=== PATIENT | female | born 1980 | race Caucasian/White ===

== ENCOUNTER 2017-12-10 06:55 | Inpatient (IN) | payer OTHER ==
[2017-12-10] MEDS ORDERED: CITRIC ACID/SODIUM CITRATE 30 ML UNIT-DOSE CUP PO ONE (07:10)
[2017-12-10] MEDS: ELECTROLYTE-148 SOLN 1,000 ML IV SCH ×2 (07:15→08:00)
[2017-12-10 07:49] VITALS: BMI 32.5
[2017-12-10] MEDS ORDERED: OXYTOCIN 20 UNITS in 0.9% NS 40 UNIT/2,000 ML INFUS.BAG IV ONE (08:00)
[2017-12-10] MEDS ORDERED: PHENYLEPHRINE HCL 10 MG/1 ML SINGLE DOSE VIAL ONE (08:03)
[2017-12-10] MEDS ORDERED: morphine SULFATE/Preservative Free 0.5 MG/ML (1cc Syringe) ONE (08:03)
[2017-12-10] MEDS ORDERED: ceFAZolin SODIUM 1 GM VIAL ONE ×3 (08:03→23:00)
--- NOTE | 2017-12-10 08:17 | HP ---
Past Medical History - Primary Care Physician PCP:: Johny Burgos - Admission Chief Complaint: 39 weeks, previous c/s ,request of repeat c/s and BTL. GDM diet controlled, AMA , breech History of Present Illness: 37 yo f g 5 [id number] edc by sono 12/16/17 . with previous c/s requesting repeat c/s , cx clp, fhr cat 1 , irregular contraction , hx of GDM, diet controlled , requesting BTL, aware BTL is permenant and has small failure risks and risks of ectopic, not reversible History Source: Patient Limitations to Obtaining History: No Limitations - Past Medical History ...: 5 ...Para: 4 ...Term: 4 ...: 0 ...Spon : 0 ...Induced : 0 ...Multiple Gestation: 0 ...LMP: 03/11/17 ... Weeks Gestation by Dates: 39.1 ...EDC by Dates: 12/16/17 ...EDC by Sono: 12/16/17 Additional OB History: has baby with Downs. one previous c/s - Past Surgical History Past Surgical History: Yes: Cholecystectomy, Cystectomy (bilateral ovarian cystectomy) Hx Myomectomy: No Hx Transabdominal Cerclage: No - Smoking History Smoking history: Never smoked Have you smoked in the past 12 months: No - Alcohol/Substance Use Hx Alcohol Use: No - Social History Usual Living Arrangement: Yes: With Spouse History of Recent Travel: No Home Medications - Allergies Allergies/Adverse Reactions: Allergies Allergy/AdvReac Type Severity Reaction Status Date / Time car scan dye Allergy Severe Itching Uncoded 12/10/17 07:22 - Home Medications Home Medications: Ambulatory Orders Acetaminophen [Tylenol .Regular Strength -] 650 mg PO Q4H PRN #0 tablet Ibuprofen 600 mg PO QID PRN #20 tablet 09/16/15 Review of Systems - Review of Systems Constitutional: reports: No Symptoms Eyes: reports: No Symptoms HENT: reports: No Symptoms Neck: reports: No Symptoms Cardiovascular: reports: No Symptoms Respiratory: reports: No Symptoms Genitourinary: reports: No Symptoms Breasts: reports: No Symptoms Reported Musculoskeletal: reports: No Symptoms Integumentary: reports: No Symptoms Neurological: reports: No Symptoms Endocrine: reports: No Symptoms Hematology/Lymphatic: reports: No Symptoms Psychiatric: reports: No Symptoms Physical Exam - Maternity Vital Signs: Vital Signs Temperature 98.6 F 12/10/17 07:15 Pulse Rate 80 12/10/17 07:15 Respiratory Rate 18 12/10/17 07:15 Blood Pressure 124/53 L 12/10/17 07:15 O2 Sat by Pulse Oximetry (%) Constitutional: Yes: Obese Eyes: Yes: WNL HENT: Yes: WNL Neck: Yes: WNL Cardiovascular: Yes: WNL Breast(s): Yes: WNL - Abdominal Exam/OB Fundal Height: 40 Number of Fetuses: Single Presentation: Breech Contractions: Yes Regularity: Irregular Intensity: Unaware Monitor Mode: External Heart Rate Location: [facility] Category: I Accelerations: Uniform Decelerations: None - Vaginal Exam/OB Vaginal Bleediing: No Speculum Exam: No Dilatation (cm): closed Effacement (%): 0 Amniotic Membrane Status: Intact Presentation: Miguel Breech Station: -4 - Physical Exam Musculoskeletal: Yes: WNL Extremities: Yes: WNL Edema: LLE: Trace, RLE: Trace Deep Tendon Reflex Grade: Normal +2 ...Motor Strength: WNL Psychiatric: Yes: WNL Hemorrhage Risk Assessment - Risk Factors Medium Risk Factors: Yes: Prior , uterine surgery,or multiple laparotomies Risk Score: 1 Risk Level: Medium Risk Problem List - Problems (1) with 39 completed weeks gestation Code(s): Z3A.39 - 39 WEEKS GESTATION OF (2) Gestational diabetes mellitus (GDM) affecting fourth Code(s): O24.419 - GESTATIONAL DIABETES MELLITUS IN , UNSP CONTROL (3) Previous section complicating Code(s): O34.219 - MATERNAL CARE FOR UNSP TYPE SCAR FROM PREVIOUS DEL (4) Obesity Code(s): E66.9 - OBESITY, UNSPECIFIED Qualifiers: Obesity type: due to excess calories Assessment/Plan repeat c/s , btl, risks discussed
[2017-12-10] MEDS ORDERED: oxyCODONE HCL 5 MG TABLET PO PRN (08:24)
[2017-12-10] MEDS ORDERED: IBUPROFEN 600 MG TABLET (FP) PO PRN (08:24)
[2017-12-10] MEDS ORDERED: BENZOCAINE 28 GM HEMORRHOIDAL OINTMENT PR PRN (08:24)
[2017-12-10] MEDS ORDERED: BENZOCAINE 20% 57 GM BOTTLE TP PRN (08:24)
[2017-12-10] MEDS ORDERED: IBUPROFEN 800 MG/8 ML IJ IVPB PRN (08:24)
[2017-12-10] MEDS ORDERED: METHYLERGONOVINE MALEATE 0.2 MG/1 ML AMP IM PRN (08:24)
[2017-12-10] MEDS ORDERED: diphenhydrAMINE HCL 25 MG CAPSULE (FP) PO PRN (08:24)
[2017-12-10] MEDS ORDERED: WITCH HAZEL 50% (TUCKS) 40 PAD/JAR PAD TP PRN (08:24)
[2017-12-10] MEDS ORDERED: OXYTOCIN 20 UNITS in 0.9% NS 20 UNIT/1,000 ML INFUS.BAG IV SCH (08:30)
[2017-12-10] MEDS ORDERED: OXYTOCIN 10 UNITS/ML VIAL ONE (08:42)
[2017-12-10] MEDS ORDERED: KETOROLAC TROMETHAMINE 30 MG/1 ML VIAL ONE (09:00)
[2017-12-10] MEDS ORDERED: KETAMINE HCL 500 MG/10 ML VIAL ONE (09:22)
[2017-12-10] MEDS ORDERED: LIDOCAINE HCL/PF 2% SDV 5ML VIAL ONE (10:04)
[2017-12-10] MEDS ORDERED: BUPIVACAINE HCL/PF 0.25% (2.5MG/ML) 10 ML VIAL ONE (10:06)
[2017-12-10] MEDS ORDERED: METHYLERGONOVINE MALEATE 0.2 MG/1 ML AMP IM ONE (10:15)
[2017-12-10] MEDS ORDERED: ACETAMINOPHEN INJECTION 100 ML IVPB ONE (12:00)
[2017-12-10] MEDS: ACETAMINOPHEN 1000 MG/100 ML VIAL (NON FORMULARY) IVPB PRN ×2 (12:05→20:40)
[2017-12-10] MEDS ORDERED: ONDANSETRON 4 MG/2 ML VIAL IVPUSH PRN (12:14)
[2017-12-10] MEDS ORDERED: OXYTOCIN 20 UNITS in 0.9% NS 20 UNIT/1,000 ML INFUS.BAG IV ONE (13:11)
--- NOTE | 2017-12-10 14:13 | OP ---
DATE OF OPERATION: 12/10/2017 PREOPERATIVE DIAGNOSES: , 39 weeks; previous section; gestational diabetes; advanced maternal age; and obesity. POSTOPERATIVE DIAGNOSES: , 39 weeks; previous section; gestational diabetes; advanced maternal age; and obesity. PROCEDURE: Repeat low-segment transverse section and right tubal ligation. SURGEON: Johny Burgos MD ANESTHESIA: Spinal. ANESTHESIOLOGIST: Apurva Julian MD RN LVN: CELINE Sácnhez ESTIMATED BLOOD LOSS: 700 mL DESCRIPTION OF OPERATIVE PROCEDURE: Patient was taken to the operating room. Under adequate spinal anesthesia, abdomen and perineum were prepped and draped. Pfannenstiel abdominal skin incision was made over the previous incision. Upon entering the fascia was excised transversely with cautery and Oliva scissors. Then, the fascia was from the rectus muscle. During the separation, there was a dense adhesion of the muscle to the fascia, and the muscle was very friable. There were several areas of bleeding which were seen into the rectus muscle which was interrupted suture of 0 Biosyn was placed, and hemostasis was established. Then, peritoneum was grasped with 2 Jenny clamps and entered. Then, upon entering the abdominal cavity, there was some adhesion of the bladder to the lower uterine segment, and there were large multipolar blood vessel running in the lower uterus and mid-uterine wall, crisscrossing. Also, there was large blood vessel was seen on each corner of the previous incision area. At this time, the bladder was pushed down. A low transverse uterine incision was made with the knife and extended laterally. At the time of cutting the lower uterine segment, there were several blood vessels which were bleeding heavy. They were grasped with T clamps, and then, the amniotic sac was entered, clear fluid. Head delivered from right occiput transverse position. Nasopharynx was suctioned, and liver baby was delivered without any difficulty. Placenta was delivered manually. Because of the vascularity of lower uterine segment during the suturing of the lower uterine segment, there was bleeding which was noted. The uterine incision was first closed with 0 Biosyn continuous suture and then the second layer with 0 Biosyn, imbricating the first layer. There was still some bleeding at the right angle of the right uterine incision, which was again sutured with 0 Biosyn. Observation of the right uterine incision again showed some oozing. At this time, uterus was delivered to the surface, and 2 [id number] sutures were placed at the right incision corner. Hemostasis was established. Then, bladder was placed into the pelvic cavity and several times irrigated. No active bleeding was seen. The left tube was not visualized from the previous surgery that she had, but the right was grasped with Ashley clamp and doubly tied, and the mesosalpinx was . Portion of tube was removed, and endosalpinx was cauterized. Again, the lower uterine segment was checked. No active bleeding was seen. Surgicel was placed for complete hemostasis, and then, all the lap pads, sponge, and instrument counts were correct. Peritoneum was closed with 0 Biosyn continuous suture. Muscles were all edematous, and they were again area that they were oozing, sutured with interrupted suture of 0 Biosyn. The fascia was closed with 0 Biosyn continuous suture. Subcutaneous fat brought together in suture of 0 Biosyn, and the skin was closed with 3-0 Vicryl continuous suture. Patient tolerated the procedure well, left the OR in good condition. Gonzalo [id number]
[2017-12-10] MEDS ORDERED: DEXTROSE 5%-WATER - 50 ML IVPB ONE ×2 (15:53→23:00)
[2017-12-10] MEDS ORDERED: CEFAZOLIN 1 GM/D5W 1 GM/50 ML BAG IVPB SCH (16:00)
[2017-12-10 16:32] LABS: BASO % 0.2 % (0-2.0); EOS % 0.2 % (0-4.5); HEMATOCRIT 34.6 % (32.4-45.2); HEMOGLOBIN 11.1 GM/dL (10.7-15.3); LYMPH % 9.1 % (8-40); MCH 26.2 pg (25.7-33.7); MCHC 32.2 g/dl (32.0-36.0); MEAN CELL VOLUME 81.4 fl (80-96); MEAN PLT VOLUME 10.6 fl (7.5-11.1); MONO % 5.2 % (3.8-10.2); NEUT % 85.3 % (42.8-82.8); PLATELET COUNT 207 K/MM3 (134-434); RBC 4.25 M/mm3 (3.60-5.2); RDW 15.5 % (11.6-15.6)
--- NOTE | 2017-12-10 22:11 | SURG ---
Surgery Crime Scene Analyst Note Crime Scene Analyst: Ashish Mckenna PA-C Date of Service: 12/10/17 Diagnosis: 39 weeks, previous c/s , request of repeat c/s and BTL Procedure: Repeat section Right tubal ligation. Note: Left fallopian tube not present (appears to have been surgically removed) I was present for the entirety of the operative procedure. For further detail, please refer to operative report. Visit type - Case Type Case Type: ED Admission - New patient This patient is new to me today: Yes Date on this admission: 12/10/17
[2017-12-10] MEDS ORDERED: CEFAZOLIN 1 GM in DEXTROSE 5%-WATER - 50 ML IVPB SCH (22:21)
[2017-12-11] MEDS: ACETAMINOPHEN 1000 MG/100 ML VIAL (NON FORMULARY) IVPB PRN (03:40)
[2017-12-11] MEDS: oxyCODONE HCL 5 MG TABLET PO PRN ×4 (07:33→20:51)
[2017-12-11] MEDS: SIMETHICONE 80 MG TAB.CHEW (FP) PO PRN ×4 (07:38→20:50)
[2017-12-11 07:56] LABS: BASO % 0.4 % (0-2.0); EOS % 0.7 % (0-4.5); HEMATOCRIT 30.8 % (32.4-45.2); HEMOGLOBIN 9.9 GM/dL (10.7-15.3); LYMPH % 14.4 % (8-40); MCH 26.1 pg (25.7-33.7); MEAN CELL VOLUME 81.7 fl (80-96); MEAN PLT VOLUME 10.1 fl (7.5-11.1); MONO % 6.5 % (3.8-10.2); PLATELET COUNT 180 K/MM3 (134-434); RBC 3.78 M/mm3 (3.60-5.2); RDW 15.5 % (11.6-15.6); WHITE BLOOD COUNT 9.5 K/mm3 (4.0-10.0)
[2017-12-11] MEDS: DEXTROSE 5%-LACTATED RINGERS 1,000 ML IV SCH (08:00)
[2017-12-11] MEDS ORDERED: BISACODYL 10 MG SUPP.RECT PR PRN (08:24)
[2017-12-11] MEDS: ENOXAPARIN NA (PORCINE) 40 MG/0.4 ML DISP.SYRIN SQ SCH (09:18)
--- NOTE | 2017-12-11 09:59 | PN ---
Progress Note (short form) - Note Progress Note: Anesthesia Post op Pt seen and examined S:Alert and awake comfortable O; Vital Signs Temperature 98.6 F 12/11/17 07:20 Pulse Rate 68 12/11/17 07:20 Respiratory Rate 18 12/11/17 08:00 Blood Pressure 105/54 L 12/11/17 07:20 O2 Sat by Pulse Oximetry (%) 99 12/10/17 21:00 CBC, BMP 12/11/17 07:00 Current Active Problems Gestational diabetes mellitus (GDM) affecting fourth (Acute) Obesity (Acute) with 39 completed weeks gestation (Acute) Previous section complicating (Acute) A/P s/ c section Doing well post op Continue current care diana Horan MD
[2017-12-11] MEDS: ACETAMINOPHEN 325 MG TABLET (FP) PO PRN ×3 (11:43→20:50)
--- NOTE | 2017-12-11 14:25 | PN ---
Post Progress Note - Subjective Subjective: POD#1 Tolerating clears. +flatus, no BM. Freely voiding. Pain controlled. OOB some. Type of Delivery: Repeat C/S Vital Signs: Vital Signs Temperature 98.6 F 12/11/17 07:20 Pulse Rate 68 12/11/17 07:20 Respiratory Rate 18 12/11/17 08:00 Blood Pressure 105/54 L 12/11/17 07:20 O2 Sat by Pulse Oximetry (%) 99 12/10/17 21:00 Uterus: Yes: Fundus Firm Incision: Yes: Dressing dry and intact Abdomen/GI: Yes: Abdomen soft Lochia, amount: Small Extremities: Yes: Calves non-tender Activity: Ambulating - Labs Labs: CBC WBC 9.5 K/mm3 (4.0-10.0) 12/11/17 07:00 RBC 3.78 M/mm3 (3.60-5.2) 12/11/17 07:00 Hgb 9.9 GM/dL (10.7-15.3) L 12/11/17 07:00 Hct 30.8 % (32.4-45.2) L 12/11/17 07:00 MCV 81.7 fl (80-96) 12/11/17 07:00 MCH 26.1 pg (25.7-33.7) 12/11/17 07:00 MCHC 32.0 g/dl (32.0-36.0) 12/11/17 07:00 RDW 15.5 % (11.6-15.6) 12/11/17 07:00 Plt Count 180 K/MM3 (134-434) 12/11/17 07:00 MPV 10.1 fl (7.5-11.1) 12/11/17 07:00 Absolute Neuts (auto) 7.4 K/mm3 (1.5-8.0) 12/11/17 07:00 Neutrophils % 78.0 % (42.8-82.8) 12/11/17 07:00 Lymphocytes % 14.4 % (8-40) D 12/11/17 07:00 Monocytes % 6.5 % (3.8-10.2) 12/11/17 07:00 Eosinophils % 0.7 % (0-4.5) D 12/11/17 07:00 Basophils % 0.4 % (0-2.0) 12/11/17 07:00 Nucleated RBC % 0 % (0-0) 12/11/17 07:00 Assessment/Plan 37yo s/p RLTCs, BTL, POD#1 Routine PP care OOB, ambulate Po pain control Advance diet Anticipate d/c to home by POD#4 Archana Vance MD
[2017-12-12] MEDS: SIMETHICONE 80 MG TAB.CHEW (FP) PO PRN ×5 (00:51→22:42)
[2017-12-12] MEDS: ACETAMINOPHEN 325 MG TABLET (FP) PO PRN ×5 (00:52→22:42)
[2017-12-12] MEDS: oxyCODONE HCL 5 MG TABLET PO PRN ×5 (00:53→22:42)
--- NOTE | 2017-12-12 07:22 | PN ---
Post Progress Note Type of Delivery: Repeat C/S Vital Signs: Vital Signs Temperature 98.6 F 12/11/17 22:00 Pulse Rate 77 12/11/17 22:00 Respiratory Rate 18 12/11/17 22:00 Blood Pressure 110/63 12/11/17 22:00 O2 Sat by Pulse Oximetry (%) 99 12/10/17 21:00 Uterus: Yes: Fundus below umbilicus Incision: Yes: Dressing dry and intact Abdomen/GI: Yes: Abdomen soft Lochia: Yes: Rubra Lochia, amount: Small Extremities: Yes: Calf tenderness Activity: Ambulating - Labs Labs: CBC WBC 9.5 K/mm3 (4.0-10.0) 12/11/17 07:00 RBC 3.78 M/mm3 (3.60-5.2) 12/11/17 07:00 Hgb 9.9 GM/dL (10.7-15.3) L 12/11/17 07:00 Hct 30.8 % (32.4-45.2) L 12/11/17 07:00 MCV 81.7 fl (80-96) 12/11/17 07:00 MCH 26.1 pg (25.7-33.7) 12/11/17 07:00 MCHC 32.0 g/dl (32.0-36.0) 12/11/17 07:00 RDW 15.5 % (11.6-15.6) 12/11/17 07:00 Plt Count 180 K/MM3 (134-434) 12/11/17 07:00 MPV 10.1 fl (7.5-11.1) 12/11/17 07:00 Absolute Neuts (auto) 7.4 K/mm3 (1.5-8.0) 12/11/17 07:00 Neutrophils % 78.0 % (42.8-82.8) 12/11/17 07:00 Lymphocytes % 14.4 % (8-40) D 12/11/17 07:00 Monocytes % 6.5 % (3.8-10.2) 12/11/17 07:00 Eosinophils % 0.7 % (0-4.5) D 12/11/17 07:00 Basophils % 0.4 % (0-2.0) 12/11/17 07:00 Nucleated RBC % 0 % (0-0) 12/11/17 07:00 Assessment/Plan 37yo s/p RLTCS, POD#2 -Routine PP care -OOB, ambulate -Advance diet as tolerated -Labs reviewed -Anticipate d/c to home by POD#4 Sunita Vance MD
[2017-12-12] MEDS: ENOXAPARIN NA (PORCINE) 40 MG/0.4 ML DISP.SYRIN SQ SCH (09:09)
[2017-12-12] MEDS ORDERED: DIPHTH,PERTUSS(ACELL),TET 0.5 ML DISP.SYRIN IM ONE (10:00)
[2017-12-12] MEDS: DEXTROSE 5%-LACTATED RINGERS 1,000 ML IV SCH (21:30)
[2017-12-12] MEDS ORDERED: SENNOSIDES/DOCUSATE COMBO (SENNA PLUS) TABLET (UD) PO PRN (22:00)
[2017-12-13] MEDS: SIMETHICONE 80 MG TAB.CHEW (FP) PO PRN ×3 (07:24→18:02)
[2017-12-13] MEDS: ACETAMINOPHEN 325 MG TABLET (FP) PO PRN ×3 (07:24→18:02)
[2017-12-13] MEDS: oxyCODONE HCL 5 MG TABLET PO PRN ×3 (07:25→18:02)
[2017-12-13 07:56] LABS: HEMOGLOBIN 9.8 GM/dL (10.7-15.3); RBC 3.71 M/mm3 (3.60-5.2); WHITE BLOOD COUNT 8.5 K/mm3 (4.0-10.0)
[2017-12-13 07:57] LABS: BASO % 0.8 % (0-2.0); EOS % 3.5 % (0-4.5); HEMATOCRIT 30.3 % (32.4-45.2); LYMPH % 13.7 % (8-40); MCH 26.3 pg (25.7-33.7); MCHC 32.2 g/dl (32.0-36.0); MEAN CELL VOLUME 81.7 fl (80-96); MEAN PLT VOLUME 9.8 fl (7.5-11.1); PLATELET COUNT 223 K/MM3 (134-434); RDW 15.9 % (11.6-15.6)
[2017-12-13 08:16] VITALS: BP 110/80; PULSE 80; TEMP 99
[2017-12-13] MEDS: ENOXAPARIN NA (PORCINE) 40 MG/0.4 ML DISP.SYRIN SQ SCH (09:40)
--- NOTE | 2017-12-18 17:44 | PATH ---
Surgical Pathology Report Patient Name: LINDA RICE Med. Rec. #: [id number] /Age/Gender: 1980 (Age: 37) / F Account: [id number] Location: [facility] OBS/BRIDAL CONSULTANT Taken: 12/10/2017 Received: 12/11/2017 Reported: 12/18/2017 Physicians: Johny Burgos M.D. Specimen(s) Received A: PLACENTA B: RIGHT FALLOPIAN TUBE Clinical History 39.1 wks x3, x1, for repeat Final Diagnosis A. PLACENTA, SECTION: 602 G THIRD TRIMESTER PLACENTA WITH TRIVASCULAR UMBILICAL CORD AND MILD ACUTE CHORIOAMNIONITIS. B. FALLOPIAN TUBE, RIGHT, PARTIAL EXCISION: FULL LUMINAL PORTION OF UNREMARKABLE FALLOPIAN TUBE. Electronically Signed Radha Jones M.D. Gross Description A. The specimen is received fresh labeled placenta and is a 602 gram, 17.0 x 15.0 x 4.0 cm. placenta with attached membranes and umbilical cord. The attached membranes are borges, thick, opaque and insert marginally. The umbilical cord measures 49 cm. in length and averages 1.2 cm. in diameter. The cord inserts eccentrically, 3 cm. to the nearest margin. No true knots or strictures are identified. Cut surface of the umbilical cord reveals 3 vessels. The surface is raphael-blue with moderate fibrin deposition and appropriate caliber vessels. The maternal surface is red-brown with focal defects. Sectioning reveals red-brown, spongy parenchyma. No lesions are identified. Senior Principal Process Engineer sections are submitted in three cassettes as follows: 1- membrane rolls and umbilical cord; 2-3- full thickness sections of placenta. B. Received in formalin labeled "right fallopian tube," is a 0.7 cm in length portion of fallopian tube. No fimbria are present. The outer surface is borges and smooth. Sectioning reveals an unremarkable lumen. The specimen is trisected and entirely submitted in one cassette. 12/17/2017
== END 2017-12-13 20:25 | disposition home or self-care (01) | DRG 540 ==
LOC: JLDR 06:55 → J3W 13:16
PROVIDERS: ADMIT Obstetrics & Gynecology; ATTEND Obstetrics & Gynecology
PROC: 10D00Z1 Extraction of Products of Conception, Low, Open Approach (ICD-10-PCS; principal; 2017-12-10)
PROC: 0UB50ZZ Excision of Right Fallopian Tube, Open Approach (ICD-10-PCS; 2017-12-10)
DX: O34.211 Maternal care for low transverse scar from previous cesarean delivery (principal); K66.0 Peritoneal adhesions (postprocedural) (postinfection); O24.410 Gestational diabetes mellitus in pregnancy, diet controlled; Z3A.39 39 weeks gestation of pregnancy; Z37.0 Single live birth; Z30.2 Encounter for sterilization; Z90.79 Acquired absence of other genital organ(s)
CPT/HCPCS: 36415; 82962; 85025; 86850; 86900; 86901; 86922; 88302-TC; 88307-TC; 90686; 90715; G0008; J0131